=== PATIENT | female | born 1985 | race Caucasian/White ===

== ENCOUNTER 2016-11-12 15:38 | Emergency (ER) | payer OTHER ==
[~2016-11-12] VITALS: Ht 157.5 cm; Wt 80.0 kg
[2016-11-12 15:40] VITALS: BP 139/90; PULSE 87; RESP 16; TEMP 98.5; O2SAT 100
--- NOTE | 2016-11-12 16:01 | PD ---
HPI Chief Complaint: Abdominal Pain Time Seen by Provider: 16:01 Travel History International Travel<30 days: No Contact w/Intl Traveler<30days: No Traveled to known affect area: No History of Present Illness HPI 31 YO F presents to the ED for evaluation of 3 day history of right sided abdominal pain. Worsened by touching the area and certain movements. She endorses changes in bowel habits, states that she normally has 3 BMs daily and reports one well formed BM daily for the past 3 days. Denies melena, hematochezia or BRBPR. She denies known trauma to the area. Denies fever, chills, N/V, anorexia. She was evaluated at [facility] two days ago and diagnosed with "a liver cyst." [facility] Past Medical History Anxiety: Yes Diminished Hearing: No Hypertension: Yes ?: Not : 1 Para: 0 : 1 Social History Alcohol Use: No Tobacco Use: Yes (05/31 ppd) Substance Use: No Allergies-Medications (Allergen,Severity, Reaction): Coded Allergies: Penicillin (Verified Allergy, Severe, HIVES, 11/12/16) Reported Meds & Prescriptions Reported Meds & Active Scripts Active Ultram (Tramadol HCl) 50 Mg Tab 50 Mg PO Q6H PRN Robaxin (Methocarbamol) 750 Mg Tab 750 Mg PO QID Mobic (Meloxicam) 15 Mg Tab 15 Mg PO DAILY Reported Bentyl (Dicyclomine HCl) 10 Mg Cap 20 Mg PO QID Aldactone (Spironolactone) 100 Mg Tab 100 Mg PO DAILY Metformin (Metformin HCl) 500 Mg Tab 500 Mg PO BIDPC With meals Review of Systems Except as stated in HPI: all other systems reviewed are Neg Physical Exam Narrative GENERAL: Well-nourished, well-developed nontoxic appearing white male in no acute distress. SKIN: Focused skin assessment warm/dry. No ecchymosis of the abdomen noted. HEAD: Normocephalic. EYES: No scleral icterus. No injection or drainage. NECK: Supple, trachea midline. No JVD or lymphadenopathy. CARDIOVASCULAR: Regular rate and rhythm without murmurs, gallops, or rubs. RESPIRATORY: Breath sounds clear and equal bilaterally. No accessory muscle use. GASTROINTESTINAL: Abdomen soft, nondistended. Tender to palpation in the right upper quadrant and right flank. No hepatosplenomegaly. No palpable masses. Active bowel sounds. MUSCULOSKELETAL: No cyanosis, or edema. Ambulatory. Moves the extremity spontaneously. BACK: Nontender without obvious deformity. No CVA tenderness. Data Data Last Documented VS Vital Signs Date Time Temp Pulse Resp B/P Pulse Ox O2 Delivery O2 Flow Rate FiO2 11/12/16 19:57 55 17 106/56 97 Room Air 11/12/16 16:08 98.6 Orders Complete Blood Count With Diff (11/12/16 16:42) Comprehensive Metabolic Panel (11/12/16 16:42) Lipase (11/12/16 16:42) Lactic Acid (11/12/16 16:42) Urinalysis - C+S If Indicated (11/12/16 16:42) Iv Access Insert/Monitor (11/12/16 16:42) Ecg Monitoring (11/12/16 16:42) Oximetry (11/12/16 16:42) Morphine Inj (Morphine Inj) (11/12/16 16:45) Ondansetron Inj (Zofran Inj) (11/12/16 16:45) Sodium Chlor 0.9% 1000 Ml Inj (Ns 1000 M (11/12/16 16:42) Sodium Chloride 0.9% Flush (Ns Flush) (11/12/16 16:45) Ed Urine Pregnancytest Poc (11/12/16 16:42) Us Abdomen Gallbladder (11/12/16 18:50) Morphine Inj (Morphine Inj) (11/12/16 20:30) Labs Laboratory Tests Test 11/12/16 11/12/16 17:00 17:15 Urine Color YELLOW Urine Turbidity CLEAR Urine pH 7.0 Urine Specific [place] 1.014 Urine Protein NEG mg/dL Urine Glucose (UA) NEG mg/dL Urine Ketones NEG mg/dL Urine Occult Blood NEG Urine Nitrite NEG Urine Bilirubin NEG Urine Urobilinogen LESS THAN 2.0 MG/DL Urine Leukocyte Esterase NEG Urine WBC 1 /hpf Urine Squamous Epithelial 1 /hpf Cells Microscopic Urinalysis Comment CULT NOT INDICATED White Blood Count 8.2 TH/MM3 Red Blood Count 4.44 MIL/MM3 Hemoglobin 14.1 GM/DL Hematocrit 42.2 % Mean Corpuscular Volume 94.9 FL Mean Corpuscular Hemoglobin 31.7 PG Mean Corpuscular Hemoglobin 33.4 % Concent Red Cell Distribution Width 13.3 % Platelet Count 210 TH/MM3 Mean Platelet Volume 9.9 FL Neutrophils (%) (Auto) 60.3 % Lymphocytes (%) (Auto) 25.8 % Monocytes (%) (Auto) 8.4 % Eosinophils (%) (Auto) 4.6 % Basophils (%) (Auto) 0.9 % Neutrophils # (Auto) 4.9 TH/MM3 Lymphocytes # (Auto) 2.1 TH/MM3 Monocytes # (Auto) 0.7 TH/MM3 Eosinophils # (Auto) 0.4 TH/MM3 Basophils # (Auto) 0.1 TH/MM3 CBC Comment DIFF FINAL Differential Comment Sodium Level 139 MEQ/L Potassium Level 3.9 MEQ/L Chloride Level 104 MEQ/L Carbon Dioxide Level 27.4 MEQ/L Anion Gap 8 MEQ/L Blood Urea Nitrogen 8 MG/DL Creatinine 0.73 MG/DL Estimat Glomerular Filtration 92 ML/MIN Rate Random Glucose 73 MG/DL Lactic Acid Level 0.9 mmol/L Calcium Level 8.6 MG/DL Total Bilirubin 1.1 MG/DL Aspartate Amino Transf 25 U/L (AST/SGOT) Alanine Aminotransferase 56 U/L (ALT/SGPT) Alkaline Phosphatase 75 U/L Total Protein 6.7 GM/DL Albumin 3.3 GM/DL Lipase 158 U/L [facility] Medical Decision Making Medical Screen Exam Complete: Yes Emergency Medical Condition: Yes Differential Diagnosis musculoskeletal pain versus cholecystitis versus UTI versus other Narrative Course 31 YO F presents to the ED for evaluation of 3 day history of right sided abdominal pain. Worsened by touching the area and certain movements. She endorses changes in bowel habits, states that she normally has 3 BMs daily and reports one well formed BM daily for the past 3 days. Denies melena, hematochezia or BRBPR. She denies known trauma to the area. Denies fever, chills, N/V, anorexia. She was evaluated at [facility] two days ago and diagnosed with "a liver cyst." Vitals reviewed. Physical exam reveals a nontoxic appearing white female in no acute distress. There is some tenderness of the right upper quadrant and right flank the physical exam is otherwise unremarkable. Records were requested from the outside hospital. Lab work is largely unremarkable. Dr. Mckenzie assumed care of this patient. Please see his note for disposition. Scripts Tramadol (Ultram)50 Mg Tab50 Mg PO Q6H PRN (PAIN) #20 TAB Ref 0 Prov:Ethan Mckenzie MD 11/12/16 Methocarbamol (Robaxin)750 Mg [id number] Mg PO QID #40 TAB Ref 0 Prov:Ethan Mckenzie MD 11/12/16 Meloxicam (Mobic)15 Mg Tab15 Mg PO DAILY #20 TAB Ref 0 Prov:Ethan Mckenzie MD 11/12/16 Esther Whittaker Nov 12, 2016 16:01
[2016-11-12 16:08] VITALS: TEMP 98.6
[2016-11-12] MEDS ORDERED: METF500T PO (16:19)
[2016-11-12] MEDS ORDERED: DICY10 PO (16:19)
[2016-11-12] MEDS ORDERED: ALDA100T PO (16:19)
[2016-11-12] MEDS ORDERED: SODIUM CHLOR 0.9% 1000 ML INJ 1,000 ML IV SCH (16:42)
[2016-11-12] MEDS ORDERED: SODIUM CHLORIDE 0.9% FLUSH 10 ML FLUSH IV FLUSH PRN (16:45)
[2016-11-12] MEDS ORDERED: MORPHINE SULFATE 4 MG/ML INJ IV PUSH ONE ×2 (16:45→20:30)
[2016-11-12] MEDS ORDERED: ONDANSETRON HCL 4 MG/2 ML VIAL IVP ONE (16:45)
[2016-11-12 17:17] VITALS: O2SAT 97
[2016-11-12 18:04] LABS: AUTOMATED NEUTROPHIL # 4.9 TH/MM3 (1.8-7.7); BASOPHIL # 0.1 TH/MM3 (0-0.2); BASOPHIL % 0.9 % (0.0-2.0); EOSINOPHIL # 0.4 TH/MM3 (0-0.4); EOSINOPHIL % 4.6 % (0.0-4.0); HEMATOCRIT 42.2 % (35.0-46.0); HEMO FLAGS DIFF FINAL; LYMPH % 25.8 % (9.0-44.0); LYMPHOCYTE # 2.1 TH/MM3 (1.0-4.8); MEAN CELL VOLUME 94.9 FL (80.0-100.0); MEAN CORPUSCULAR HEMOGLOBIN 31.7 PG (27.0-34.0); MEAN CORPUSCULAR HGB CONC 33.4 % (32.0-36.0); MONO % 8.4 % (0.0-8.0); NEUT % 60.3 % (16.0-70.0); PLATELET COUNT 210 TH/MM3 (150-450); RED BLOOD COUNT 4.44 MIL/MM3 (4.00-5.30); RED CELL DISTRIBUTION WIDTH 13.3 % (11.6-17.2); WHITE BLOOD COUNT 8.2 TH/MM3 (4.0-11.0)
[2016-11-12 18:07] LABS: BLOOD, URINE NEG (NEG); COMMENT (UR) CULT NOT INDICATED; CULTURE IF INDICATED CULT NOT INDICATED; GLUCOSE,URINE NEG (NEG); KETONE, URINE NEG (NEG); NITRITE,URINE NEG (NEG); SQUAMOUS EPITHELIAL CELL URINE 1 /hpf (0-5); URINE COLOR YELLOW (YELLW/STRAW)
[2016-11-12 18:27] LABS: ANION GAP 8 MEQ/L (5-15); AST (GOT) 25 U/L (15-37); BICARBONATE 27.4 MEQ/L (21.0-32.0); BLOOD UREA NITROGEN 8 MG/DL (7-18); CHLORIDE 104 MEQ/L (98-107); GLOMERULAR FILTRATION RATE 92 ML/MIN (>89); POTASSIUM 3.9 MEQ/L (3.5-5.1); SODIUM (NA) 139 MEQ/L (136-145)
[2016-11-12 18:30] LABS: ALKALINE PHOSPHATASE 75 U/L (45-117); ALT (GPT) 56 U/L (10-53); TOTAL BILIRUBIN ADULT 1.1 MG/DL (0.2-1.0)
[2016-11-12 19:57] VITALS: BP 106/56; PULSE 55; RESP 17; O2SAT 97
--- NOTE | 2016-11-12 20:25 | PD ---
Physical Exam Narrative Patient was seen by my geological survey field assistant and signed out to me. Data Data Last Documented VS Vital Signs Date Time Temp Pulse Resp B/P Pulse Ox O2 Delivery O2 Flow Rate FiO2 11/12/16 19:57 55 17 106/56 97 Room Air 11/12/16 16:08 98.6 Orders Complete Blood Count With Diff (11/12/16 16:42) Comprehensive Metabolic Panel (11/12/16 16:42) Lipase (11/12/16 16:42) Lactic Acid (11/12/16 16:42) Urinalysis - C+S If Indicated (11/12/16 16:42) Iv Access Insert/Monitor (11/12/16 16:42) Ecg Monitoring (11/12/16 16:42) Oximetry (11/12/16 16:42) Morphine Inj (Morphine Inj) (11/12/16 16:45) Ondansetron Inj (Zofran Inj) (11/12/16 16:45) Sodium Chlor 0.9% 1000 Ml Inj (Ns 1000 M (11/12/16 16:42) Sodium Chloride 0.9% Flush (Ns Flush) (11/12/16 16:45) Ed Urine Pregnancytest Poc (11/12/16 16:42) Us Abdomen Gallbladder (11/12/16 18:50) Morphine Inj (Morphine Inj) (11/12/16 20:30) Labs Laboratory Tests Test 11/12/16 11/12/16 17:00 17:15 Urine Color YELLOW Urine Turbidity CLEAR Urine pH 7.0 Urine Specific [place] 1.014 Urine Protein NEG mg/dL Urine Glucose (UA) NEG mg/dL Urine Ketones NEG mg/dL Urine Occult Blood NEG Urine Nitrite NEG Urine Bilirubin NEG Urine Urobilinogen LESS THAN 2.0 MG/DL Urine Leukocyte Esterase NEG Urine WBC 1 /hpf Urine Squamous Epithelial 1 /hpf Cells Microscopic Urinalysis Comment CULT NOT INDICATED White Blood Count 8.2 TH/MM3 Red Blood Count 4.44 MIL/MM3 Hemoglobin 14.1 GM/DL Hematocrit 42.2 % Mean Corpuscular Volume 94.9 FL Mean Corpuscular Hemoglobin 31.7 PG Mean Corpuscular Hemoglobin 33.4 % Concent Red Cell Distribution Width 13.3 % Platelet Count 210 TH/MM3 Mean Platelet Volume 9.9 FL Neutrophils (%) (Auto) 60.3 % Lymphocytes (%) (Auto) 25.8 % Monocytes (%) (Auto) 8.4 % Eosinophils (%) (Auto) 4.6 % Basophils (%) (Auto) 0.9 % Neutrophils # (Auto) 4.9 TH/MM3 Lymphocytes # (Auto) 2.1 TH/MM3 Monocytes # (Auto) 0.7 TH/MM3 Eosinophils # (Auto) 0.4 TH/MM3 Basophils # (Auto) 0.1 TH/MM3 CBC Comment DIFF FINAL Differential Comment Sodium Level 139 MEQ/L Potassium Level 3.9 MEQ/L Chloride Level 104 MEQ/L Carbon Dioxide Level 27.4 MEQ/L Anion Gap 8 MEQ/L Blood Urea Nitrogen 8 MG/DL Creatinine 0.73 MG/DL Estimat Glomerular Filtration 92 ML/MIN Rate Random Glucose 73 MG/DL Lactic Acid Level 0.9 mmol/L Calcium Level 8.6 MG/DL Total Bilirubin 1.1 MG/DL Aspartate Amino Transf 25 U/L (AST/SGOT) Alanine Aminotransferase 56 U/L (ALT/SGPT) Alkaline Phosphatase 75 U/L Total Protein 6.7 GM/DL Albumin 3.3 GM/DL Lipase 158 U/L MDM Supervised Visit with [place]: Yes Interpretation(s) 2022 PM. CBC within normal limit. CMP within normal limit. Lactic acid 0.9. Total bili 1.1. ALT 56. UA is negative. Diagnosis Primary Impression: Right flank pain Patient Instructions: General Instructions Additional Instruction: Take medication as needed for pain. Moist heat to the area. Follow-up with personal physician. Return if persistent problem or worse. Med/Other Pt SpecificInfo: Prescription(s) given Scripts Tramadol (Ultram)50 Mg Tab50 Mg PO Q6H PRN (PAIN) #20 TAB Ref 0 Prov:Ethan Mckenzie MD 11/12/16 Methocarbamol (Robaxin)750 Mg [id number] Mg PO QID #40 TAB Ref 0 Prov:Ethan Mckenzie MD 11/12/16 Meloxicam (Mobic)15 Mg Tab15 Mg PO DAILY #20 TAB Ref 0 Prov:Ethan Mckenzie MD 11/12/16 Disposition: 01 DISCHARGE HOME Condition: Stable Ethan Mckenzie MD Nov 12, 2016 20:25
--- NOTE | 2016-11-12 20:31 | RADRPT ---
EXAM DATE/TIME: 11/12/2016 19:04 [place] COMPARISON: No previous studies available for comparison. INDICATIONS : Right upper quadrant pain. MEDICAL HISTORY : Hypertension. Ovarian cysts. Anxiety. Tobacco use. SURGICAL HISTORY : None. ENCOUNTER: Initial ACUITY: 3 days PAIN SCORE: 8/10 LOCATION: Right upper quadrant MEASUREMENTS: LIVER: 12.7 cm length COMMON DUCT: 4 mm RIGHT KIDNEY: 11.9 x 4.5 x 5.2 cm FINDINGS: LIVER: Much of the liver is obscured due to patient body habitus and overlying bowel gas. 2.0 x 1.9 x1.8 cm round hyperechoic lesion in the right lobe. Portal venous flow is hepatopedal. COMMON DUCT: No intraluminal mass or stone visualized. GALLBLADDER: Visualized portions show no evidence of calculi or wall thickening. No pericholecystic fluid. PANCREAS: Poorly visualized due to overlying bowel gas. RIGHT KIDNEY: Poorly visualized due to overlying bowel gas. No evidence of hydronephrosis. CONCLUSION: 2 cm hyperechoic mass in the right lobe of the liver. Finding is nonspecific. Recommend routine [facility] MRI abdomen with and without contrast to evaluate this mass with greater specificity. The most li gale etiology for this appearance in this age group is a hemangioma. Andrade Moreno MD on November 12, 2016 at 20:26 Board Certified Radiologist. This report was verified electronically.
[2016-11-12] MEDS ORDERED: MOBI15TA PO (20:47)
[2016-11-12] MEDS ORDERED: ULTR50TA5 PO (20:47)
[2016-11-12] MEDS ORDERED: ROBA750T PO (20:47)
== END 2016-11-12 21:14 | disposition home or self-care (01) ==
LOC: NEPD 15:38
DX: R10.31 Right lower quadrant pain (principal); R19.4 Change in bowel habit; I10 Essential (primary) hypertension; K76.89 Other specified diseases of liver; F17.210 Nicotine dependence, cigarettes, uncomplicated
CPT/HCPCS: 76705; 80053; 81001; 83605; 83690; 84703; 85025; 96374; 96375; 99285; J2270; J2405; J7030